=== PATIENT | female | born 1975 | race African-American/Black ===

== ENCOUNTER 2019-07-14 16:52 | Emergency (ER) | payer MEDICAID ==
[~2019-07-14] VITALS: Ht 167.6 cm; Wt 62.0 kg
[2019-07-14] MEDS ORDERED: OXYCODONE HCL/ACETAMINOPHEN 5/325MG TABLET PO ONE (18:15)
[2019-07-14 19:13] VITALS: BP 138/74
== END 2019-07-14 19:15 | disposition home or self-care (01) ==
LOC: ER 16:52
DX: M54.12 Radiculopathy, cervical region (principal); F17.200 Nicotine dependence, unspecified, uncomplicated; Z71.6 Tobacco abuse counseling
CPT/HCPCS: 72040; 72100; 99283; 99406

== ENCOUNTER 2021-01-09 15:39 | Emergency (ER) | payer MEDICAID ==
[~2021-01-09] VITALS: Ht 167.6 cm; Wt 59.0 kg
[2021-01-09 15:47] VITALS: BP 139/94
[2021-01-09] MEDS ORDERED: IBUPROFEN 600MG TABLET PO ONE (16:45)
[2021-01-09] MEDS ORDERED: IBUP-2029 MT (16:50)
== END 2021-01-09 17:17 | disposition home or self-care (01) ==
LOC: ER 15:39
DX: M25.571 Pain in right ankle and joints of right foot (principal); R00.0 Tachycardia, unspecified
CPT/HCPCS: 73610; 81025; 99283; Z7610